=== PATIENT | male | born 1960 | race Caucasian/White ===

== ENCOUNTER 2020-09-01 08:47 | Outpatient (REF) | payer BC, SELFPAY ==
--- NOTE | ~2020-09-01 | US_ITS ---
EXAMINATION: US ABDOMEN COMPLETE CLINICAL INFORMATION: Right upper quadrant pain. COMPARISON: CT abdomen and pelvis 04/23/2012. Ultrasound abdomen 01/04/2011. TECHNIQUE: Real-time imaging of the abdominal viscera. FINDINGS: PANCREAS: Normal. ABDOMINAL AORTA: The abdominal aorta is of normal caliber with mild echogenic atherosclerotic plaque. INFERIOR VENA CAVA: Visualized portions are normal. LIVER: The liver is normal in size. The liver is normal caliber with increased echogenicity. No focal hepatic lesion. There is no intrahepatic biliary duct dilatation seen. GALLBLADDER: Surgically absent. COMMON BILE DUCT: Normal in caliber measuring 0.3 cm in diameter. RIGHT KIDNEY: Normal. No hydronephrosis. No renal calculi or focal parenchymal lesions. The kidney measures 12.8 cm in maximum dimension. LEFT KIDNEY: Normal. No hydronephrosis. No renal calculi or focal parenchymal lesions. The kidney measures 14.1 cm in maximum dimension. SPLEEN: Normal. The spleen measures 9.9 cm in maximum dimension. There is a small accessory splenule measuring 1.1 x 0.9 x 1.4 cm. FREE FLUID: None. US/US abdomen complete IMPRESSION: 1. Hepatic steatosis without focal lesion. 2. There is a small accessory splenule. 3. The rest of the abdominal ultrasound is unremarkable.
== END 2020-09-01 08:48 | disposition home or self-care (01) ==
LOC: HO.US 08:47
PROVIDERS: Visit Provider Internal Medicine Gastroenterology
DX: R10.11 Right upper quadrant pain (principal)
CPT/HCPCS: 76700

== ENCOUNTER 2020-09-01 10:15 | Outpatient (REF) | payer BC, SELFPAY ==
[2020-09-01 13:44] LABS: Hematocrit 47.6 % (42-52); Hemoglobin 15.6 g/dl (14.0-18.0); Mean Corpuscular HGB Conc 32.8 g/dl (31.0-36.0); Mean Corpuscular Hemoglobin 30.6 pg (27.0-33.0); Mean Corpuscular Volume 93.5 fL (80-98); Mean Platelet Volume 10.3 fL (9.4-12.4); Platelet Count 204 X10*3/uL (160-400); Red Blood Count 5.09 X10*6/uL (4.60-5.80); Red Cell Distribution Width 12.7 % (11.0-16.0)
[2020-09-01 14:19] LABS: Alanine Aminotransferase 45 U/L (0-40); Albumin Level 4.3 g/dL (3.5-5.0); Alkaline Phosphatase 51 U/L (39-117); Aspartate Amino Transferase 28 U/L (5-37); Bilirubin Direct 0.2 mg/dL (0.0-0.5); Bilirubin Total 0.6 mg/dL (0.0-1.0); Lipase 55 U/L (8-78)
== END 2020-09-01 10:16 | disposition home or self-care (01) ==
LOC: HO.10HDL 10:15
PROVIDERS: Visit Provider Internal Medicine Gastroenterology
DX: R10.11 Right upper quadrant pain (principal)
CPT/HCPCS: 36415; 80076; 83690; 85027

== ENCOUNTER 2021-01-18 10:16 | Outpatient (REF) | payer BC, SELFPAY ==
--- NOTE | ~2021-01-18 | XR_ITS ---
EXAMINATION: XR CERVICAL SPINE CLINICAL INFORMATION: Neck pain. COMPARISON: None TECHNIQUE: Three views of the cervical spine were obtained. FINDINGS: No abnormal prevertebral soft tissue swelling is seen. No acute cervical spine fracture is evident. There is moderate narrowing of the C5-C6 disc space with marginal spurring. There appears to be significant right C3-C4 neuroforaminal narrowing related to spurring of joints of Luschka. There is mild anterior neuroforaminal encroachment at the C5-C6 levels with bilateral spurring of the joints of L[place]chka. XR/XR cervical spine 4V IMPRESSION: No acute cervical spine fracture. Cervical spondylosis at the C3-C4 and C5-C6 levels.
== END 2021-01-18 10:17 | disposition home or self-care (01) ==
LOC: HO.XRAY 10:16
PROVIDERS: PCP Internal Medicine; Visit Provider Psychiatry & Neurology Neurology
DX: M54.2 Cervicalgia (principal); M47.812 Spondylosis without myelopathy or radiculopathy, cervical region
CPT/HCPCS: 72050

== ENCOUNTER 2021-03-09 | Outpatient (REF) | payer BC, SELFPAY | END 2021-03-09 00:01 | disposition home or self-care (01) | LOC: HO.LNP | PROVIDERS: Visit Provider Physician Assistant | DX: Z20.822 Contact with and (suspected) exposure to COVID-19 (principal); J34.89 Other specified disorders of nose and nasal sinuses | CPT/HCPCS: U0003; U0005 ==

== ENCOUNTER 2021-03-10 11:10 | Outpatient (REF) | payer BC, SELFPAY | END 2021-03-10 11:11 | disposition home or self-care (01) | LOC: HO.LNP 11:10 | PROVIDERS: Visit Provider Physician Assistant | DX: Z13.89 Encounter for screening for other disorder (principal) ==

== ENCOUNTER 2021-08-05 12:52 | Outpatient (REF) | payer BC, SELFPAY ==
[2021-08-05 13:29] LABS: Appearance Urine CLEAR; Color Urine YELLOW; Glucose Urine UA NEG (NEG); Leukocyte Esterase Urine NEG (NEG); Nitrite Urine NEG (NEG); PH 6.5 (5.0-8.0); Specific Gravity - Urine 1.015 (1.005-1.025); Urine Blood NEG (NEG); Urine Ketones NEG (NEG); Urine Protein NEG (NEG-TRACE)
[2021-08-05 14:03] LABS: RBC Urine 0 /HPF (0); WBC Urine 0 /HPF (0-4)
== END 2021-08-05 12:53 | disposition home or self-care (01) ==
LOC: HO.LAB 12:52
PROVIDERS: PCP Internal Medicine; Visit Provider Internal Medicine
DX: R30.0 Dysuria (principal)
CPT/HCPCS: 81001

== ENCOUNTER 2022-01-28 07:45 | Outpatient (REF) | payer BC, SELFPAY ==
[2022-01-28 08:36] LABS: Alanine Aminotransferase 79 U/L (0-40); Aspartate Amino Transferase 50 U/L (5-37); Cholesterol 173 mg/dL; HDL Cholesterol 30 mg/dL; LDL Cholesterol Calculated 101 mg/dl; Triglycerides 212 mg/dL
== END 2022-01-28 07:46 | disposition home or self-care (01) ==
LOC: HO.LAB 07:45
PROVIDERS: PCP Internal Medicine; Referring Provider Internal Medicine; Visit Provider Internal Medicine Cardiovascular Disease
DX: I25.10 Atherosclerotic heart disease of native coronary artery without angina pectoris (principal); E78.5 Hyperlipidemia, unspecified; I10 Essential (primary) hypertension
CPT/HCPCS: 36415; 80061; 84450; 84460

== ENCOUNTER 2023-10-01 14:41 | Emergency (ER) | payer BC, SELFPAY ==
[2023-10-01] VITALS (8 sets, daily range): BP systolic 120–150; BP diastolic 83–100; PULSE 76–89; RESP 14–22; TEMP 36.3–36.6; O2SAT 98–99; BMI 27.2
--- NOTE | ~2023-10-01 | CT_ITS ---
EXAMINATION: CT ABDOMEN AND PELVIS WITH CONTRAST CLINICAL INFORMATION: Lower abdominal pain question colitis COMPARISON: Ultrasound abdomen complete to 1021 TECHNIQUE: Multidetector volumetric images were obtained from the superior aspect of the liver through the pubic symphysis following administration 85 mL of Omnipaque 350 intravenous contrast. Sagittal and coronal reformatted images were obtained on the technologist's workstation. Oral contrast: No This CT examination was performed using dose optimization techniques as appropriate, variously including the following: *Automated exposure control *Adjustment of mA and/or kV according to patient size (this includes techniques or standardized protocols for targeted exams where dose is matched to indication/reason for exam; i.e. extremities or head) *Use of iterative reconstruction technique DLP: 458 mGy-cm FINDINGS: LUNG BASES: The heart size is enlarged with mild coronary artery calcifications. Minimal atelectatic changes seen in lingula and lung bases. LIVER, GALLBLADDER, AND BILIARY TREE: The liver is normal in size, shape, and attenuation. No focal hepatic lesion or biliary ductal dilatation is present. The gallbladder has been surgically removed. PANCREAS: Unremarkable. SPLEEN: Unremarkable. ADRENAL GLANDS: Unremarkable. KIDNEYS AND URETERS: The kidneys are normal in size, shape, and attenuation. No hydronephrosis, hydroureter, or calculi seen. No perinephric stranding. BLADDER: Unremarkable. GASTROINTESTINAL TRACT: There is scattered stool, diverticuli and gas seen throughout the colon without any significant distention. And there is nonspecific mild mural thickening involving sigmoid colon and the rectum but no pericolic fat stranding. The small bowel loops are normal caliber. Appendix is normal caliber. There is no free air or free fluid seen. ABDOMINAL WALL: No significant hernia is appreciated. LYMPH NODES: Normal. VASCULAR: There is aneurysmal dilatation of distal abdominal aorta measuring 3.1 x 3.5 cm and approximately 6.7 cm in craniocaudad length. There is significant thrombus noted. PELVIC VISCERA: The prostate gland is mildly enlarged. No free fluid or free air seen. Prominent left inguinal canal containing soft tissue density noted. The inferior end of the inguinal canal is not included in the [id number]. OSSEOUS STRUCTURES: Mild degenerative disc changes L3-L4 and L2-L2 disc levels with ventral spondylosis and endplate sclerosis at the L3-L4 disc level. No aggressive lytic process seen.. CT/CT abdomen pelvis w IV con IMPRESSION: Mild mural thickening distal sigmoid colon and rectum but no pericolic fat stranding. Question inflammatory colitis. Mild constipation. Aneurysmal dilatation of distal abdominal aorta with circumferential thrombus. Cholecystectomy changes. Fleischner guidelines were followed.
--- NOTE | ~2023-10-01 | CT_ITS ---
EXAMINATION: CT ANGIOGRAM ABDOMEN AND PELVIS CLINICAL INFORMATION: Abdominal pain, abnormal distal aorta COMPARISON: CT of the abdomen and pelvis obtained earlier today 10/01/2023 TECHNIQUE: Multiple axial images were obtained through the abdomen and pelvis following the administration of 80 mL of Omnipaque 350 intravenous contrast. Images were reviewed on a dedicated 3-D workstation. This CT examination was performed using dose optimization techniques as appropriate, variously including the following: *Automated exposure control *Adjustment of mA and/or kV according to patient size (this includes techniques or standardized protocols for targeted exams where dose is matched to indication/reason for exam; i.e. extremities or head) *Use of iterative reconstruction technique DLP: 444 mGy-cm FINDINGS: 1. Distal thoracic aorta:The distal thoracic aorta is normal in caliber. No evidence of dissection or other acute aortic syndrome. 2. Mesenteric Arteries: The celiac axis, superior mesenteric artery and inferior mesenteric artery are patent and without stenosis. Incidentally there is a replaced left hepatic artery arising from the left gastric artery. 3. Renal Arteries: There are 2 right renal arteries and a single left renal arteryRenal arteries are patent and without stenosis or other vascular anomaly. 4. Infrarenal Abdominal Aorta:As noted in the prior report there is an aneurysm of the infrarenal abdominal aorta originating just beyond the origin of the inferior mesenteric artery with moderately extensive mural thrombus within the posterior aspect of the aneurysmal segment. The aneurysm itself measures up to 3.5 x 3.1 cm in maximal dimension at the level of the L3-L4 interspace and while there is some tapering remains aneurysmal to the level of the iliac bifurcation where it measures 2.6 x 2.8 cm. 5. Iliac arteries:Aneurysmal dilation of the left common iliac artery measures up to 1.9 cm proximally. There is aneurysmal dilation of the right common iliac to 1.6 cm. There is severe stenosis at the origin of the right internal iliac artery and moderate stenosis at the origin of the left internal iliac artery. External iliac arteries are normal in caliber. There is calcific disease of the bilateral common femoral arteries which does not result in hemodynamically significant stenosis. 6. Inferior Vena Cava: Normal unenhanced appearance of the inferior vena cava 7. Iliac venous system: Normal unenhanced appearance 8. Randy-mesenteric venous system: Normal unenhanced appearance of the portal and mesenteric veins. Abdominopelvic findings are unchanged from the prior CT. CT/CT angio abdomen pelvis IMPRESSION: Patent abdominopelvic arterial vasculature. Infrarenal abdominal aortic aneurysm measures up to 3.5 x 3.1 cm. There are bilateral common iliac artery aneurysms measuring 1.6 mm on the right and 1.9 cm on the left. No change in previously described abdominopelvic findings.
--- NOTE | 2023-10-01 15:05 | ECG_ITS ---
Test Reason : ABD PAIN Blood Pressure : / mmHG Vent. Rate : 078 BPM Atrial Rate : 078 BPM P-R Int : 180 ms QRS Dur : 086 ms QT Int : 416 ms P-R-T Axes : 041 085 107 degrees QTc Int : 474 ms Normal sinus rhythm Anteroseptal infarct , age undetermined Abnormal ECG When compared with ECG of 01-JUL-2004 21:02, Premature ectopic complexes are no longer Present Anteroseptal infarct is now Present Nonspecific T wave abnormality no longer evident in Inferior leads T wave inversion now evident in Lateral leads QT has lengthened Referred By: Delfin Sr Electronically Signed By:KATI MAHER MD
--- NOTE | 2023-10-01 15:08 | ED.GENADULT ---
HPI - General Adult General Chief complaint: Abdominal Pain Stated complaint: ABD PAIN,NAUSEA,VOMITING PER EMS Time Seen by Provider: 10/01/23 14:54 History of Present Illness HPI narrative: Patient is a 63-year-old male with a history of coronary disease. He had quadruple bypass surgery in May of 2023 at [facility]. Prior to that he had had coronary stents. He also has a history of small-cell lung cancer manage the [facility]. He is currently considered disease free from the point of view of his lung cancer. He also has a history of irritable bowel syndrome and he is on chlordiazepoxide which he has been on for a long time. The patient says that multiple times last week he had episodes of lower abdominal pain which were relieved by passage of stools. He was in contact with his financial solutions advisor last week because of the symptoms. Apparently Dr. Leo arranged for an outpatient CT scan of the abdomen tomorrow at [facility]. Today however the patient had another episode of the same pains which did not resolve on its own and so he came to the emergency room by ambulance. He indicates that he feels the pain in the lower abdomen in the midline. He has had no real nausea or vomiting. He has had no diarrhea. No fevers. Related Data Home Medications Medication Instructions Recorded Confirmed aspirin 81 mg tablet,delayed 81 mg PO DAILY 10/12/20 03/09/21 release (Adult Aspirin Regimen) atorvastatin 80 mg tablet 80 mg PO DAILY 10/12/20 03/09/21 chlordiazepoxide-clidinium 5 1 cap PO BID 10/12/20 03/09/21 mg-2.5 mg capsule fenofibrate 160 mg tablet 160 mg PO DAILY 10/12/20 03/09/21 lisinopril 10 mg tablet 10 mg PO DAILY 10/12/20 03/09/21 metoprolol succinate 100 mg 100 mg PO DAILY 10/12/20 03/09/21 tablet,extended release 24 hr Previous Rx's Medication Instructions Recorded dicyclomine 10 mg capsule 10 mg PO TID PRN abdominal pain 10/01/23 #30 caps Allergies Allergy/AdvReac Type Severity Reaction Status Date / Time omeprazole [From Prilosec] Allergy Intermediate TACHYCARDIA Verified 07/26/21 09:29 NARCOTIC-? Allergy Unknown UNKNOWN Uncoded 07/26/21 09:29 prilosec Allergy Unknown tachycardia Uncoded 07/26/21 09:29 propulsid Allergy Unknown tachycardia Uncoded 07/26/21 09:29 Review of Systems Review of Systems: Yes all other systems are reviewed and are negative [facility] Past Medical History Medical History (Updated 10/01/23 @ 22:11 by Delfin Sr MD) Spasmodic colon Tremor Hypercholesterolemia Essential (primary) hypertension Surgical History History of back surgery History of cholecystectomy History of hernia surgery History of left ventricular assist device (LVAD) Family History Family History (Updated 07/26/21 @ 09:34 by MACRINA Connors) Mother No problems noted. Father No problems noted. Social History Social History (Updated 07/26/21 @ 09:34 by MACRINA Connors) Housing: House Alcohol intake: current Alcohol intake frequency: a few times a month Patient Tobacco Use Status: Current everyday Tobacco user Tobacco use type: Cigarette Cigarettes Per Day: 10 Smoked in Last 30 Days: No e-Cigarette/Vaping Use: Never Used Use of substances other than those prescribed or required for medical reasons: No Advance Directives: No Advance Directives Information Provided: No service: No Current occupational status: employed Cognitive needs: No Hearing needs: No Vision needs: Yes (reading glasses) Physical Exam ED Vital Signs: Vital Signs - 24 hr 10/01/23 15:03 10/01/23 16:00 10/01/23 17:52 Temperature 97.6 F 97.6 F Pulse Rate 76 78 82 Respiratory Rate 16 16 22 H Blood Pressure 148/92 H 131/84 138/92 H Pulse Oximetry 99 99 98 Oxygen Delivery Method Room Air Room Air Room Air 10/01/23 18:08 10/01/23 20:34 10/01/23 22:08 Temperature 97.8 F 97.4 F Pulse Rate 84 86 89 Respiratory Rate 16 16 14 Blood Pressure 126/86 126/83 120/87 Pulse Oximetry 98 98 98 Oxygen Delivery Method Room Air Room Air Room Air BMI result Body Mass Index 27.2 Const Other: The patient is awake and alert. He looks quite uncomfortable. HENMT Other: Face is symmetrical. Airway is clear. Mucous membranes moist Eyes Other: Pupils are round and equal, conjunctivae are clear Neck Other: No JVD Resp Effort & Inspection: normal respiratory effort Auscultation: clear to auscultation bilaterally Cardio Rate: regular rate Rhythm: regular rhythm Heart sounds: S1 normal heart sound present and S2 normal heart sound present GI Other: The patient has mild tenderness with palpation of the lower abdomen but no definite rebound or guarding. The upper abdomen is not obviously tender. No masses or pulsatile masses Skin Other: Skin is pale and dry Neuro Other: The patient is awake, alert, oriented, appropriate, grossly neurologically intact. Extrem Other: No calf swelling or tenderness. No peripheral edema. Both feet are well-perfused. The left foot has an excellent dorsalis pedis pulse. The right foot has an excellent posterior tibialis pulse. Medications Administered Generic Name Dose Route Start Last Admin Trade Name Freq PRN Reason Stop Dose Admin Sodium Chloride 1,000 mls @ 999 mls/hr 10/01/23 22:00 10/01/23 22:05 Ns IV 10/01/23 23:00 999 mls/hr .Q1H1M NACHO Administration Discontinued Medications Generic Name Dose Route Start Last Admin Trade Name Freq PRN Reason Stop Dose Admin Dicyclomine HCl 10 mg 10/01/23 21:50 10/01/23 22:05 Dicyclomine Hcl 10 Mg Capsule PO 10/01/23 21:51 10 mg ONCE ONE Administration Hydromorphone HCl 1 mg 10/01/23 17:44 10/01/23 17:50 Hydromorphone Hcl 1 Mg/Ml Syringe IVPUSH 10/01/23 17:45 1 mg ONCE ONE Administration Protocol Sodium Chloride 1,000 mls @ 999 mls/hr 10/01/23 15:15 10/01/23 17:35 Ns IV 10/01/23 16:15 Infused .Q1H1M NACHO Infusion Promethazine HCl 12.5 mg/ 50.5 mls @ 202 mls/hr 10/01/23 15:06 10/01/23 15:59 Sodium Chloride IV 10/01/23 15:07 Infused ONCE ONE Infusion Iohexol 100 ml 10/01/23 17:02 10/01/23 17:02 Iohexol 350 Mg/Ml 100 Ml Infus..Btl IV 10/01/23 17:03 85 ml ONCE ONE Administration Iohexol 100 ml 10/01/23 20:16 10/01/23 20:16 Iohexol 350 Mg/Ml 100 Ml Infus..Btl IV 10/01/23 20:17 80 ml ONCE ONE Administration Morphine Sulfate 4 mg 10/01/23 15:06 10/01/23 15:23 Morphine Sulfate 4 Mg/Ml Cartridge IVPUSH 10/01/23 15:07 4 mg ONCE ONE Administration Protocol Medical Decision Making Medical Decision Making [facility] Narrative: The patient is a 63-year-old male with a history of small-cell lung cancer which is currently in remission. He also has a history of coronary disease and recently had quadruple bypass at [facility]. He had a long postoperative course at [facility] that he says included a lot of abdominal problems including an ileus. The patient says that he has a history of IBS for which he has been prescribed chlordiazepoxide for many years. He comes to the emergency room complaining of lower abdominal midline discomfort feel last week intermittently and seemed to be very associated with bowel movements. Today he developed discomfort that became quite severe and he felt unable to pass any stool and called an ambulance and came to the hospital. His abdominal exam seemed fairly benign. He did not seem to have a lot of tenderness. I performed a bedside ultrasound of his abdomen after initially meeting the patient and there was no obvious aortic dilation. Views were poor because of bowel gas however. My overall impression was that the patient's symptoms seemed to be more gastrointestinal in vascular and so with the patient underwent a CT of the abdomen and pelvis with IV contrast with standard timing. The patient's labs were quite unremarkable with a white count of 9000 and an unremarkable differential. CRP was normal. Other labs were unremarkable. The patient was given IV morphine and later IV hydromorphone for pain The patient's CT was read as showing findings possibly consistent with mild colitis. Additionally there were findings of distal aortic dilation with thrombus. The radiologist felt that the aortic findings were likely chronic. I discussed the case with Dr. Jones of Gastroenterology who was concerned that the patient having pain out of proportion to his physical exam felt that the findings of possible colitis on CT were not very impressive. He was concerned about the vascular findings. Ultimately I felt that we needed to get a CT angiogram of the abdomen and pelvis to investigate for possible vascular pathology further. The aortic dilation is an infrarenal abdominal aneurysm measuring 3.5 x 3.1 cm in maximal dimension. At around the time that the CT angiogram results were obtained I also was able to review a CT from [facility] dated 06/16/[address]23. [address] CT scan describes a ?saccular infrarenal abdominal aortic aneurysm measuring 31 x 36 mm. It would seem therefore the infrarenal abdominal aneurysm is stable. The patient's CT angiogram had additional findings in the iliac arteries as well including stenoses and aneurysmal dilations. After the 2nd CT scan the patient apparently had an explosive bowel movement after which he felt considerably better. Ultimately I was quite convinced that the patient's symptoms seemed to be gastrointestinal rather than vascular. It seems likely that the patient's symptoms may be related to a long history of irritable bowel syndrome. Ultimately I felt the patient, who felt much better after an explosive bowel movement, did not require hospitalization. He will be prescribed dicyclomine and should follow up with Dr. Leo his financial solutions advisor. He also should follow up with a vascular surgeon as an outpatient. Lab Data 10/01/23 15:18 10/01/23 15:18 Labs: Lab Results 10/01/23 10/01/23 10/01/23 Range/Units 15:18 15:22 20:38 WBC 9.0 (4.8-10.8) X10*3/uL RBC 5.69 (4.60-5.80) X10*6/uL Hgb 14.7 (14.0-18.0) g/dl Hct 44.9 (42.0-52.0) % MCV 78.9 L (80.0-98.0) fL MCH 25.8 L (27.0-33.0) pg MCHC 32.7 (31.0-36.0) g/dl RDW 16.7 H (11.0-16.0) % Plt Count 266 (160-400) X10*3/uL MPV 9.1 L (9.4-12.4) fL Immature Gran % (Auto) 0.3 (0.0-0.4) % Neut % (Auto) 78.4 H (45-73) % Lymph % (Auto) 12.9 L (20-40) % [place] % (Auto) 6.9 (2-11) % Eos % (Auto) 0.9 (0-4) % Baso % (Auto) 0.6 (0-2) % Lymph # (Auto) 1.2 (1.2-4.9) X10*3/uL [place] # (Auto) 0.6 (0.1-1.2) X10*3/uL Eos # (Auto) 0.1 (0.0-0.4) X10*3/uL Baso # (Auto) 0.1 (0.0-0.2) X10*3/uL Abs Immat Gran (auto) 0.03 (0.00-0.03) X10*3/uL Absolute Neuts (auto) 7.1 (2.0-8.3) x10*3/uL Absolute Nucleated RBC 0.000 (0.0-0.012) X10*3/uL Nucleated RBC % (auto) 0.0 (0.0-0.2) /100WBC VBG pH 7.40 (7.32-7.43) VBG pCO2 38 mmHg VBG pO2 37 mmHg VBG HCO3 24 (22-26) mmol/L VBG O2 Saturation 55.0 % VBG Base Excess -0.3 mmol/L Sodium 139 (135-145) mmol/L Potassium 3.8 (3.3-5.1) mmol/L Chloride 104 (96-108) mmol/L Carbon Dioxide 24 (22-29) mmol/L Anion Gap 15 (12-20) BUN 18 H (9-16) mg/dL Creatinine 1.47 H (0.5-1.4) mg/dL Estim Creat Clear Calc 47.4 Estimated GFR 48 Random Glucose 98 (60-115) mg/dL Calcium 10.3 H (8.4-10.2) mg/dL Magnesium 1.9 (1.6-2.6) mg/dL Total Bilirubin 0.5 (0.0-1.0) mg/dL Direct Bilirubin 0.3 (0.0-0.5) mg/dL AST 35 (5-37) U/L ALT 35 (0-40) U/L Alkaline Phosphatase 73 (39-117) U/L Troponin I High Sens 4.7 (<3.5-35.0) ng/L C-Reactive Protein 0.32 (< or = 0.50) mg/dL Total Protein 7.7 (6.5-8.0) g/dL Albumin 4.3 (3.5-5.0) g/dL Lipase 32 (8-78) U/L Urine Color Yellow Urine Appearance Clear Urine pH 5.0 (5.0-9.0) Ur Specific [place] >= 1.030 H (1.005-1.025) Urine Protein Negative (Neg-Trace) mg/dL Urine Glucose (UA) Negative (Negative) mg/dL Urine Ketones Negative (Negative) mg/dL Urine Blood Negative (Negative) Urine Nitrite Negative (Negative) Ur Leukocyte Esterase Negative (Negative) Discharge Plan Discharge Clinical Impression: Abdominal pain, Abdominal spasms, Arterial vascular disease Patient Disposition: Home, Self-Care Additional Instructions: Your testing today is on the whole quite reassuring from the point of view of any acutely dangerous process. I think that symptoms that you have been experiencing are most likely a manifestation of irritable bowel syndrome. I have sent a medication called dicyclomine to your pharmacy which you may use on an as-needed basis for abdominal crampiness. Additionally you may want to try taking MiraLax for a few days to see if it helps loosen stools and ease passage of stool. Please contact your financial solutions advisor in the morning for a prompt follow-up appointment and additional advice. In addition you should also see a vascular surgeon. Your CT scans showed that you have findings in your major blood vessels that show early vascular disease that will need ongoing follow-up. I have provided the name and contact information for Dr. Head, the [place] vascular surgeon. Also make an appointment with your new primary care doctor. If you feel significantly worse at any time return to the emergency room. Prescriptions: New dicyclomine 10 mg capsule 10 mg PO TID PRN (Reason: abdominal pain) Qty: 30 0RF No Action fenofibrate 160 mg tablet 160 mg PO DAILY lisinopril 10 mg tablet 10 mg PO DAILY atorvastatin 80 mg tablet 80 mg PO DAILY chlordiazepoxide-clidinium 5-2.5 mg capsule 1 cap PO BID metoprolol succinate 100 mg tablet extended release 24 hr 100 mg PO DAILY aspirin [Adult Aspirin Regimen] 81 mg tablet,delayed release (DR/EC) 81 mg PO DAILY Referrals: Fernando Leo MD [Physician] - (Abdominal spasms, probable irritable bowel syndrome) Martinez Quintana MD [Physician] - (Abdominal cramping, incidental finding of intra-abdominal vascular disease) Antony Head MD [Physician] - (incidental findings of diffuse aortic and iliac disease) Interventions: ED Discharge Assessment Last Done: 10/01/23 22:27
[2023-10-01] MEDS: 0.9 % Sodium Chloride 1,000 ML 999 ML IV ×2 (15:22→22:05)
[2023-10-01 15:23] LABS: MANUAL DIFF FLAG NO
[2023-10-01] MEDS: Morphine Sulfate 4 MG/ML CARTRIDGE IVPUSH (15:23)
[2023-10-01 15:25] LABS: Basophils Absolute Auto 0.1 X10*3/uL (0.0-0.2); Basophils Percent Auto 0.6 % (0-2); Eosinophils Absolute Auto 0.1 X10*3/uL (0.0-0.4); Eosinophils Percent Auto 0.9 % (0-4); Hematocrit 44.9 % (42.0-52.0); Hemoglobin 14.7 g/dl (14.0-18.0); Imm Gran Abs Auto 0.03 X10*3/uL (0.00-0.03); Imm Gran Pct Auto 0.3 % (0.0-0.4); Lymphocytes Absolute Auto 1.2 X10*3/uL (1.2-4.9); Lymphocytes Percent Auto 12.9 % (20-40); Mean Corpuscular HGB Conc 32.7 g/dl (31.0-36.0); Mean Corpuscular Hemoglobin 25.8 pg (27.0-33.0); Mean Corpuscular Volume 78.9 fL (80.0-98.0); Mean Platelet Volume 9.1 fL (9.4-12.4); Monocytes Absolute Auto 0.6 X10*3/uL (0.1-1.2); Monocytes Percent Auto 6.9 % (2-11); Neutrophils Absolute Auto 7.1 x10*3/uL (2.0-8.3); Neutrophils Percent Auto 78.4 % (45-73); Platelet Count 266 X10*3/uL (160-400); Red Blood Count 5.69 X10*6/uL (4.60-5.80); Red Cell Distribution Width 16.7 % (11.0-16.0)
[2023-10-01 15:28] LABS: Venous Blood Gas Refer to POC result
[2023-10-01 15:28] LABS: VBG Base Excess -0.3 mmol/L; VBG HCO3 24 mmol/L (22-26); VBG pCO2 38 mmHg; VBG pO2 37 mmHg
--- NOTE | 2023-10-01 15:28 | PC.NURSE ---
Patient with PMH small cell lung CA, chemo 1 year ago, admitted with 10/10 abd pain since sunday, waxing and waning but constant since this AM. Denies N/V, last BM this AM. Arianna varela NT.
[2023-10-01 15:40] LABS: Alanine Aminotransferase 35 U/L (0-40); Albumin Level 4.3 g/dL (3.5-5.0); Alkaline Phosphatase 73 U/L (39-117); Anion Gap 15 (12-20); Aspartate Amino Transferase 35 U/L (5-37); Bilirubin Direct 0.3 mg/dL (0.0-0.5); Bilirubin Total 0.5 mg/dL (0.0-1.0); Blood Urea Nitrogen 18 mg/dL (9-16); C Reactive Protein 0.32 mg/dL (< or = 0.50); Calcium 10.3 mg/dL (8.4-10.2); Carbon Dioxide 24 mmol/L (22-29); Chloride 104 mmol/L (96-108); Creatinine Clr Calc Pharmacy 47.4; Estimated Glomerular Filt Rate 48; Glucose Random 98 mg/dL (60-115); Lipase 32 U/L (8-78); Magnesium 1.9 mg/dL (1.6-2.6); Potassium 3.8 mmol/L (3.3-5.1); Sodium 139 mmol/L (135-145); Total Protein 7.7 g/dL (6.5-8.0)
[2023-10-01 15:47] LABS: Troponin-I High Sensitivity 4.7 ng/L (<3.5-35.0)
[2023-10-01] MEDS: iohexoL 350 MG/ML 100 ML INFUS..BTL IV ×2 (17:02→20:16)
[2023-10-01] MEDS: HYDROmorphone HCl 1 MG/ML SYRINGE IVPUSH (17:50)
--- NOTE | 2023-10-01 20:12 | PC.NURSE ---
Patient assisted 1A to commode, currently transported to CT.
[2023-10-01 20:44] LABS: Appearance Urine Clear; Color Urine Yellow; Glucose Urine UA Negative (Negative); Leukocyte Esterase Urine Negative (Negative); Nitrite Urine Negative (Negative); Specific Gravity - Urine >= 1.030 (1.005-1.025); Urine Blood Negative (Negative); Urine Ketones Negative (Negative); Urine Protein Negative (Neg-Trace)
[2023-10-01] MEDS: Dicyclomine HCl 10 MG CAPSULE PO (22:05)
== END 2023-10-01 23:18 | disposition home or self-care (01) ==
PROVIDERS: Emergency Provider Emergency Medicine
DX: R10.9 Unspecified abdominal pain (principal); R25.2 Cramp and spasm; I77.9 Disorder of arteries and arterioles, unspecified; K58.9 Irritable bowel syndrome, unspecified; I71.43 Infrarenal abdominal aortic aneurysm, without rupture; Z85.118 Personal history of other malignant neoplasm of bronchus and lung; Z95.1 Presence of aortocoronary bypass graft; Z79.899 Other long term (current) drug therapy
CPT/HCPCS: 36415; 74174; 74177; 80048; 80076; 81003; 82803; 83690; 83735; 84484; 85025; 86140; 93005; 96361; 96374; 96375; 99285; J1170; J2270; J2550; Q9967

== ENCOUNTER → 2023-10-01 15:05 | Outpatient (BNV) | payer BC, SELFPAY | PROVIDERS: Emergency Provider Emergency Medicine; Visit Provider Internal Medicine Cardiovascular Disease | DX: R10.9 Unspecified abdominal pain (principal) | CPT/HCPCS: 93010 ==

== ENCOUNTER 2023-10-24 14:03 | Outpatient (AMB) | payer BC, SELFPAY ==
--- NOTE | 2023-10-24 14:05 | HO.NEPHOV_ITS ---
HPI HPI Comments History of Present Illness Details I had the privilege of seeing Edwin in follow-up of his chronic kidney disease and hypomagnesemia. He has coronary artery disease and had undergone CABG. As a part of workup for CABG he had a chest x-ray which showed an abnormal lesion which on further workup showed it as lung cancer for which he received chemotherapy(cisplatin as well as etoposide) and radiation. He continues to have hypomagnesemia and receives intravenous repletion. He feels much improved after his heart surgery. He has lost some weight and is quite active. He continues to get cardiac rehab. He denies chest pain, shortness of breath, paroxysmal nocturnal dyspnea, orthopnea, pedal edema, urinary or orthostatic symptoms. [facility] Medical History (Updated 10/24/23 @ 14:41 by Fredo Brandon MD) Spasmodic colon Tremor Hypercholesterolemia Essential (primary) hypertension Surgical History (Updated 10/24/23 @ 14:14 by Jenny Mueller MA) S/P quadruple vessel bypass History of left ventricular assist device (LVAD) History of hernia surgery History of cholecystectomy History of back surgery Family History Mother No problems noted. Father No problems noted. Social History Housing: House Alcohol intake: current Alcohol intake frequency: a few times a month Patient Tobacco Use Status: Current everyday Tobacco user Tobacco use type: Cigarette Cigarettes Per Day: 10 e-Cigarette/Vaping Use: Never Used service: No Current occupational status: employed Cognitive needs: No Hearing needs: No Vision needs: Yes (reading glasses) Vital Signs 10/24/23 14:08 Height 5 ft 7 in Weight 181 lb BMI 28.3 BP 120/82 Blood Pressure Location Rt brachial Position Sitting Pulse 77 Pulse Source Pulse Oximeter Pulse Oximetry (%) 99 Oxygen Delivery Method Room Air Physical Exam Vital Signs: Last Vital Signs Pulse 77 10/24/23 14:08 BP 120/82 10/24/23 14:08 Pulse Ox 99 10/24/23 14:08 Oxygen Delivery Method Room Air 10/24/23 14:08 BMI result Body Mass Index 28.3 Const General: comfortable and no acute distress Orientation/consciousness: patient oriented x3 HEENT Head: Yes normocephalic Mouth: Normal oral and palatal mucosa present Eyes EOM: EOMs intact bilaterally Neck Neck: Yes supple Resp Auscultation: clear to auscultation bilaterally Cardio Jugular venous distension: no JVD Rate: regular rate GI Palpation (GI): Soft to palpation Auscultation: normal bowel sounds General: Yes no CVA tenderness Back/Spine/Pelvis Back: no CVA tenderness Skin General skin exam: no rashes or lesions noted Neuro General: patient oriented x3 and moves all extremities Extrem General: Yes no pedal edema Assessment & Plan Assessment & Plan (1) CKD (chronic kidney disease) stage 3, GFR 30-59 ml/min: Code(s): N18.30 - Chronic kidney disease, stage 3 unspecified Qualifiers: Chronic kidney disease stage 3 subtype: stage 3a (GFR 45-59) Qualified Code(s): N18.31 - Chronic kidney disease, stage 3a (2) Essential (primary) hypertension: Code(s): I10 - Essential (primary) hypertension (3) Hypomagnesemia: Code(s): E83.42 - Hypomagnesemia Plan His renal functions are stable. His blood pressure is at goal. He continues to get intravenous magnesium replacement. I asked him to take increased oral dose of magnesium. I will consider initiating him on amiloride in the future. He maintains good hydration. He does not have any orthostatic symptoms. He should avoid nonsteroidal anti-inflammatories. I did not make any other medication changes today. Follow-up blood work ordered and follow-up appointment given. Answered all questions. Orders: Orders Blood Urea Nitrogen 10/24/23 E83.42 - Hypomagnesemia, I10 - Essential (primary) hypertension, N18.30 - Chronic kidney disease, stage 3 unspecified Electrolytes 10/24/23 E83.42 - Hypomagnesemia, I10 - Essential (primary) hypertension, N18.30 - Chronic kidney disease, stage 3 unspecified Creatinine 10/24/23 E83.42 - Hypomagnesemia, I10 - Essential (primary) hypertension, N18.30 - Chronic kidney disease, stage 3 unspecified Coding Level of Care Code Est Pt Level 4 (11186) Diagnoses Stage 3a chronic kidney disease N18.31 Chronic kidney disease stage 3 subtype: stage 3a (GFR 45-59) Essential (primary) hypertension I10 Hypomagnesemia E83.42 Results Reviewed Nephrology Results: Hgb 14.7 g/dl (14.0-18.0) 10/01/23 WBC 9.0 X10*3/uL (4.8-10.8) 10/01/23 Plt Count 266 X10*3/uL (160-400) 10/01/23 Sodium 139 mmol/L (135-145) 10/01/23 Potassium 3.8 mmol/L (3.3-5.1) 10/01/23 Chloride 104 mmol/L (96-108) 10/01/23 Carbon Dioxide 24 mmol/L (22-29) 10/01/23 BUN 18 mg/dL (9-16) H 10/01/23 Creatinine 1.47 mg/dL (0.5-1.4) H 10/01/23 Calcium 10.3 mg/dL (8.4-10.2) H 10/01/23 Urine Protein Negative mg/dL (Neg-Trace) 10/01/23
[2023-10-24 14:08] VITALS: BP 120/82; PULSE 77; O2SAT 99; BMI 28.3
== END 2023-10-24 14:48 | disposition home or self-care (01) ==
PROVIDERS: PCP Internal Medicine; Visit Provider Internal Medicine Nephrology
DX: N18.31 Chronic kidney disease, stage 3a (principal); I10 Essential (primary) hypertension; E83.42 Hypomagnesemia
CPT/HCPCS: 99214

== ENCOUNTER → 2023-10-24 14:03 | Outpatient (BNVA) | payer BC, SELFPAY | PROVIDERS: PCP Internal Medicine; Visit Provider Internal Medicine Nephrology ==

== ENCOUNTER 2023-10-31 15:29 | Outpatient (AMB) | payer BC, SELFPAY ==
--- NOTE | 2023-10-31 15:41 | MHC.PC.OV ---
Vital Signs 10/31/23 15:42 Height 5 ft 7 in Weight 180 lb BMI 28.2 BP 122/72 Blood Pressure Location Lt brachial Position Sitting Pulse 74 Pulse Source Pulse Oximeter Pulse Oximetry (%) 98 Oxygen Delivery Method Room Air Intake Visit Reasons: CKD, HTN Intake Note: Patient is here to follow up on CKD, HTN. 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 Allergy (Unknown, Uncoded 10/31/23 15:42) UNKNOWN prilosec Allergy (Unknown, Uncoded 10/31/23 15:42) tachycardia propulsid Allergy (Unknown, Uncoded 10/31/23 15:42) tachycardia Tobacco use date assessed: 10/31/23 Fall risk assessment: No Falls in past year Last assessed Fall Risk: 10/31/23 Dental Screening Dental Screen Date: 10/31/23 Did you have a dental visit in the last 12 months?: Yes Did you have a dental problem in the last 6 months where you did not have access to dental care?: No Was dental information given to patient?: Patient has dentist HPI CKD, HTN HPI Details 63-year-old male presents to the office to discuss his chronic medical conditions. In April of last year, patient had a routine chest x-ray which revealed his non-small cell cancer. He received 4 rounds of chemotherapy and radiation. This was complicated with low magnesium and required multiple hospitalizations at [facility]. He also underwent bypass surgery for his coronary artery disease. Surgery also was complicated with low magnesium and hemoglobin. Patient now has stage 3 kidney disease and sees a certified pest control technician. He continues to get cardiac rehab. He denies chest pain, shortness of breath, paroxysmal nocturnal dyspnea, orthopnea, pedal edema, urinary or orthostatic symptoms. [facility] Medical History (Updated 11/04/23 @ 08:30 by Lazaro Campbell MD) Coronary artery disease Small cell lung cancer Spasmodic colon Tremor Hypercholesterolemia Essential (primary) hypertension Surgical History S/P quadruple vessel bypass History of left ventricular assist device (LVAD) History of hernia surgery History of cholecystectomy History of back surgery Family History Mother No problems noted. Father No problems noted. Social History Housing: House Alcohol intake: current Alcohol intake frequency: holidays/special occasions only Patient Tobacco Use Status: Former Tobacco user Tobacco use type: Cigarette Cigarettes Per Day: 10 e-Cigarette/Vaping Use: Never Used Second Hand Smoke Exposure: Yes service: No Current occupational status: employed Cognitive needs: No Hearing needs: No Vision needs: Yes (reading glasses) Questionnaire PHQ-9 Over the last 2 weeks, how often have you been bothered by any of the following problems? 1. Little interest or pleasure in doing things: not at all 2. Feeling down, depressed, or hopeless: not at all 3. Trouble falling or staying asleep, or sleeping too much: not at all 4. Feeling tired or having little energy: not at all 5. Poor appetite or overeating: not at all 6. Feeling bad about yourself - or that you are a failure or have let yourself or your family down: not at all 7. Trouble concentrating on things, such as reading the newspaper or watching television: not at all 8. Moving or speaking so slowly that other people could have noticed. Or the opposite - being so fidgety or restless that you have been moving around a lot more than usual: not at all 9. Thoughts that you would be better off or of hurting yourself in some way: not at all Total score: 0 Depression Screening Interpretation: Negative Depression Screening Done: Yes Source: Developed by Drs. Derrick Mantilla, Macrina Avilez, Jaydon Douglass and colleagues, with an educational cali from [employer]. Thrive Questionnaire Date Thrive assessed: 10/31/23 I am a: Patient What is your living situation today?: I have a steady place to live Within the past 12 months, did the food you bought not last and you didn't have the money to get more?: Never true Within the past 12 months, did you worry whether your food would run out before you got money to buy more?: Never true Do you have trouble paying for medicines?: No Do you have trouble getting transportation to medical appointments?: No Do you have trouble paying your heating and electricity bill?: No Do you have trouble taking care of your child, family member or friend?: No Do you have trouble with day-to-day activities such as bathing, preparing meals, shopping, managing finances, etc.?: No Are you currently unemployed and looking for a job?: No Are you interested in more education?: No Currently or been in a relationship where the following occur: no concerns reported THRIVE Score: 0 AUDIT C Alcohol Use Questionnaire (AUDIT-C) 1. How often do you have a drink containing alcohol?: Monthly or less 2. How many drinks containing alcohol do you have on a typical day when you are drinking?: 1 or 2 Total Score: 1 LAXMI-7 AMB Questionnaire LAXMI-7 Date LAXMI - 7 assessed: 10/31/23 Feeling nervous, anxious, or on edge: 0 = Not at all Not being able to stop or control worryin = Not at all Worrying too much about different things: 0 = Not at all Trouble relaxin = Not at all Being so restless that it is hard to sit still: 0 = Not at all Becoming easily annoyed or irritable: 0 = Not at all Feeling afraid as if something awful might happen: 0 = Not at all Total LAXMI-7 score (0-4 normal; 5-9 mild; 10-14 moderate; 15-21 severe): 0 Source: Developed by Drs. Derrick Mantilla, Macrina Avilez, Jaydon Douglass and colleagues, with an educational cali from [employer]. Physical exam (Primary Care) Vital Signs: Last Vital Signs Pulse 74 10/31/23 15:42 BP 122/72 10/31/23 15:42 Pulse Ox 98 10/31/23 15:42 Oxygen Delivery Method Room Air 10/31/23 15:42 Care Plan Goal for BP management: Blood pressure is in range. Continue current medications BMI result Body Mass Index 28.2 Tobacco/Smoking Status: Tobacco use Status Tobacco use date assessed 10/31/23 10/31/23 15:51 Patient Tobacco Use Status Former Tobacco user 10/31/23 15:51 Tobacco use type Cigarette 10/31/23 15:51 e-Cigarette/Vaping Use Never Used 10/31/23 15:51 PHQ-9: PHQ-9 Score PHQ-9: Total score 0 10/31/23 15:51 Depression Screening Interpretation: Negative Thrive Assessment: Date of Thrive Assessment Date Thrive assessed 10/31/23 10/31/23 15:51 Currently or been in a relationship where the following occur: no concerns reported Advance Care Planning discussion: Exists, not on file Date of discussion: 10/31/23 Who was present: Pain Forms completed: Health Care Proxy Time spent: 1-15 minutes, not on file Actual minutes spent: 5 Const General: cooperative and healthy appearing Nutritional Appearance: well nourished Orientation/consciousness: patient oriented x3 Limitations: no limitations HENMT Head: Yes normal to inspection Eyes General: appearance normal, both eyes and all related structures Neck Neck: Yes normal visual inspection Chest Chest palpation & inspection: normal palpation of entire chest wall Resp Effort & Inspection: normal respiratory effort Neuro General: patient oriented x3 Assessment and Plan Assessment & Plan (1) Small cell lung cancer: Code(s): C34.90 - Malignant neoplasm of unspecified part of unspecified bronchus or lung Plan: Notes from oncologist at [facility] reviewed. Patient received chemoradiation. No further treatment is being planned at this time. Recent MRI was clear for any metastasis (2) CKD (chronic kidney disease) stage 3, GFR 30-59 ml/min: Code(s): N18.30 - Chronic kidney disease, stage 3 unspecified Qualifiers: Chronic kidney disease stage 3 subtype: stage 3a (GFR 45-59) Qualified Code(s): N18.31 - Chronic kidney disease, stage 3a Plan: Note from the certified pest control technician reviewed. Patient has stage 3 kidney disease (3) Hypomagnesemia: Code(s): E83.42 - Hypomagnesemia Plan: Condition is stable (4) Spasmodic colon: Code(s): K58.9 - Irritable bowel syndrome without diarrhea Qualifiers: Irritable bowel syndrome type: unspecified Qualified Code(s): K58.9 - Irritable bowel syndrome without diarrhea Plan: Condition is stable (5) Coronary artery disease: Code(s): I25.10 - Atherosclerotic heart disease of [place] coronary artery without angina pectoris Plan: Continue cardiac rehab. He is getting it done at [facility]. Coding Level of Care Code Est Pt Level 4 (85539) Diagnoses Small cell lung cancer C34.90 Stage 3a chronic kidney disease N18.31 Chronic kidney disease stage 3 subtype: stage 3a (GFR 45-59) Hypomagnesemia E83.42 Irritable bowel syndrome, unspecified type K58.9 Irritable bowel syndrome type: unspecified Coronary artery disease I25.10 Additional Codes Vital Signs *Quality* - Advance Care Planning discussion: Exists, not on file ([id number]) Vital Signs *Quality* - Time spent: 1-15 minutes, not on file ([id number])
[2023-10-31 15:42] VITALS: BP 122/72; PULSE 74; O2SAT 98; BMI 28.2
== END 2023-10-31 16:28 | disposition home or self-care (01) ==
LOC: HO.HMGH 15:29
PROVIDERS: PCP Internal Medicine; Visit Provider Internal Medicine
DX: C34.90 Malignant neoplasm of unspecified part of unspecified bronchus or lung (principal); N18.31 Chronic kidney disease, stage 3a; E83.42 Hypomagnesemia; K58.9 Irritable bowel syndrome, unspecified; I25.10 Atherosclerotic heart disease of native coronary artery without angina pectoris; Z00.00 Encounter for general adult medical examination without abnormal findings
CPT/HCPCS: 1123F; 1124F; 99214

== ENCOUNTER 2023-12-13 09:25 | Outpatient (AMB) | payer BC, SELFPAY ==
--- NOTE | 2023-12-13 09:36 | A.OFFVIS_ITS ---
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 Went to the ED for abdominal pain. Pt states he sees many specialist due to cancer hx, sees oncology, nephrology, pulmonology/thoracic, radiologist (cancer Tx), cardiology. Accompanied by: Self / Same As Patient Allergies omeprazole [From Prilosec] Allergy (Intermediate, Verified 12/13/23 09:43) TACHYCARDIA NARCOTIC-? 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 He has a history of coronary artery disease and prior to undergoing CABG she was worked up and found to have small cell lung cancer. Was subsequently treated at [facility]. It appeared to have reduced in size and he subsequently underwent CABG. Post CABG he had a prolonged hospital stay of nearly 22 days. During his workup he had undergone CT angiogram and it was noted that he had a aortic aneurysm. He now presents to us for follow-up. He is of note quit smoking about a year and a half ago. [facility] Medical History Coronary artery disease Small cell lung cancer Spasmodic colon Tremor Hypercholesterolemia Essential (primary) hypertension Surgical History S/P quadruple vessel bypass History of left ventricular assist device (LVAD) History of hernia surgery History of cholecystectomy History of back surgery Family History Mother No problems noted. Father No problems noted. Social History Housing: House Alcohol intake: current Alcohol intake frequency: holidays/special occasions only Patient Tobacco Use Status: Former Tobacco user Tobacco use type: Cigarette Cigarettes Per Day: 10 e-Cigarette/Vaping Use: Never Used Second Hand Smoke Exposure: Yes service: No Current occupational status: employed Cognitive needs: No Hearing needs: No Vision needs: Yes (reading glasses) Review of Systems Const All systems reviewed & are unremarkable except as noted in HPI and below Reports no additional complaints ENT Reports Normal hearing present Card Denies chest pain, Denies chest pain at rest, Denies chest pain with activity and Denies pedal edema Resp Denies cough GI Denies abdominal pain Musc Denies abnormal gait, Denies muscle cramps and Denies radiating pain into limb Skin/Breast Denies skin ulcer and Denies wounds Neuro Reports Normal hearing present and Denies abnormal gait Psych Reports no additional complaints Physical Exam Vital Signs: BMI result Body Mass Index 28.2 Const General: cooperative, healthy appearing and comfortable Orientation/consciousness: oriented to person, oriented to place and oriented to time HEENT Head: Yes normal to inspection Neck Neck: Yes normal visual inspection Carotids: no bruits Chest Chest palpation & inspection: normal inspection of the chest Resp Effort & Inspection: normal respiratory effort and able to speak in complete sentences Auscultation: clear to auscultation bilaterally, no crackles, no rales, no rhonchi and no wheezes Cardio Rate: regular rate Rhythm: regular rhythm Heart sounds: S1 normal heart sound present and S2 normal heart sound present Bruits: no carotid bruits Peripheral pulses: Peripheral pulses 2+ throughout GI Inspection: Yes normal to inspection Skin Wounds: no wounds Hair: normal Neuro General: oriented to person, oriented to place and oriented to time Cranial nerves: Yes CN's II-XII intact bilaterally and Yes Normal hearing present Cognition (Neuro): normal cognition Motor exam (neuro): 5/5 motor strength present throughout Extrem Other: venous exam: No significant superficial varicosities or spider telangiectasias, minimal edema General: No clubbing, No cyanosis and No edema Psych Appearance: grossly normal Mental Status: mental status grossly normal Speech and movement: Normal speech and movement present Results Reviewed Results Reviewed: CT angiogram dated 10/01/2023 demonstrates infrarenal aorta measuring 3.5 x 3.1 cm. Assessment & Plan Assessment & Plan (1) AAA (abdominal aortic aneurysm) without rupture: Code(s): I71.40 - Abdominal aortic aneurysm, without rupture, unspecified Category: Medical Qualifiers: Abdominal aorta location: infrarenal aorta Qualified Code(s): I71.43 - Infrarenal abdominal aortic aneurysm, without rupture Plan: In short patient has radiologic evidence of a AAA on CT scan of 3.5 cm. We have discussed the pathophysiology of aortic aneurysms and the risk of ruptures. We have discussed rupture risk based on size. In addition we have discussed conservative measures and risk factor modification for prevention of increase in size of the aneurysm. the patient is scheduled for surveillance follow-up in approximately 1 year. Thank you for allowing us to participate in the care of this patient Orders: Orders US abdominal aortic aneurysm 1 Year I71.43 - Infrarenal abdominal aortic aneurysm, without rupture Coding Level of Care Code New Pt Level 4 (04375) Diagnoses Infrarenal abdominal aortic aneurysm (AAA) without rupture I71.43 Abdominal aorta location: infrarenal aorta
[2023-12-13 09:37] VITALS: BMI 28.2
== END 2023-12-13 10:02 | disposition home or self-care (01) ==
PROVIDERS: Visit Provider Surgery Vascular Surgery
DX: I71.43 Infrarenal abdominal aortic aneurysm, without rupture (principal)
CPT/HCPCS: 99204

== ENCOUNTER → 2023-12-13 09:25 | Outpatient (BNVA) | payer BC, SELFPAY | PROVIDERS: Visit Provider Surgery Vascular Surgery ==

== ENCOUNTER 2024-03-28 06:25 | Day surgery (SDC) | payer BC, SELFPAY ==
[2024-03-28 06:52] VITALS: BP 140/91; PULSE 82; RESP 16; TEMP 36.5; O2SAT 99; BMI 29.6
[2024-03-28] MEDS: Lactated Ringers 1,000 ML 100 ML IVCONT (07:12)
--- NOTE | 2024-03-28 07:20 | HO.ANESPROP2 ---
Documented by User: Courtney Paul NP 03/27/24 13:05 HPI - Anesthesia Eval Consult details Narrative: 63yo M for Colonoscopy CAD s/p CABG x 4 05/2023. Follows [facility] Cardiology. OK to hold plavix, but must remain on asa periop Follows vascular for AAA (3.5 cm infrarenal). Last visit 11/2023 with 1 year f/u. Lung CA s/p chemo and rad CKD and hypomag r/t chemo/rad. Follows renal PMFSH Active Problems Active Problems: All Active Problems AAA (abdominal aortic aneurysm) without rupture (Acute) Hypomagnesemia (Acute) CKD (chronic kidney disease) stage 3, GFR 30-59 ml/min (Acute) Viral upper respiratory tract infection (Acute) Rhinorrhea (Acute) Coronary artery disease (Acute) Small cell lung cancer (Acute) Spasmodic colon (Acute) Tremor (Acute) Hypercholesterolemia (Acute) Essential (primary) hypertension (Acute) Past Medical History Medical History (Updated 03/26/24 @ 14:39 by Court Jacobo RN) AAA (abdominal aortic aneurysm) Coronary artery disease Small cell lung cancer Spasmodic colon Tremor Hypercholesterolemia Essential (primary) hypertension Family History Family History Mother No problems noted. Father No problems noted. Surgical History Surgical History History of esophagogastroduodenoscopy (EGD) H/O colonoscopy Hx of heart artery stent S/P quadruple vessel bypass History of hernia surgery History of cholecystectomy History of back surgery Social History Social History Housing: House Are you a primary customer care representative to a significant other at home: No Do you presently have visiting nurse or other home services: No Alcohol intake: current Alcohol intake frequency: holidays/special occasions only Patient Tobacco Use Status: Former Tobacco user Tobacco use type: Cigarette Cigarettes Per Day: 10 Years Smoked: 30 Smoked in Last 30 Days: No e-Cigarette/Vaping Use: Never Used Second Hand Smoke Exposure: Yes Use of substances other than those prescribed or required for medical reasons: No Have you been hit, kicked, punched, or otherwise hurt by someone within the past year? If so, by whom?: No Are you DNR?: No Advance Directives: No Advance Directives Information Provided: Yes Recently lost weight without trying: No How much weight loss: Not applicable Eating poorly because of decreased appetite: No Nutrition screen score: 0 Nutrition Risks: No Nutritional Risk Poor oral hygiene: Yes (full upper, lower partial) service: No Current occupational status: employed Cognitive needs: No Hearing needs: No Vision needs: Yes (reading glasses) Meds Allergies Allergy/AdvReac Type Severity Reaction Status Date / Time meperidine [From Demerol] Allergy Severe UNKNOWN Verified 03/28/24 06:48 woke up in ICU omeprazole [From Prilosec] Allergy Intermediate TACHYCARDIA Verified 03/28/24 06:48 Home Medications ?Medication ?Instructions ?Recorded ?Confirmed ?Last Taken ?Type aspirin 81 mg tablet,delayed 81 mg PO DAILY 10/12/20 03/28/24 03/27/24 History release (Adult Aspirin Regimen) atorvastatin 80 mg tablet 80 mg PO DAILY 10/12/20 03/28/24 Unknown History fenofibrate 160 mg tablet 160 mg PO DAILY 10/12/20 03/28/24 Unknown History clopidogrel 75 mg tablet 75 mg PO DAILY 10/24/23 03/28/24 03/20/24 History dicyclomine 10 mg capsule 10 mg PO BID PRN abdominal pain 10/24/23 03/28/24 Unknown History lansoprazole 15 mg capsule,delayed 15 mg PO BID 10/24/23 03/28/24 03/28/24 History release magnesium oxide 400 mg (241.3 mg 400 mg PO BID 10/24/23 03/28/24 Unknown History magnesium) tablet metoprolol tartrate 25 mg tablet 12.5 mg PO BID 10/24/23 03/28/24 03/28/24 History amlodipine 2.5 mg tablet 2.5 mg PO DAILY 12/13/23 03/28/24 03/28/24 History Exam Pertinent Lab Results Pertinent Lab Results: Laboratory Tests 10/01/23 15:18 WBC 9.0 Hgb 14.7 Hct 44.9 Plt Count 266 Sodium 139 Potassium 3.8 Chloride 104 Carbon Dioxide 24 BUN 18 H Creatinine 1.47 H Narrative Narrative: EKG 09/2023 Vent. Rate : 078 BPM Atrial Rate : 078 BPM P-R Int : 180 ms QRS Dur : 086 ms QT Int : 416 ms P-R-T Axes : 041 085 107 degrees QTc Int : 474 ms Normal sinus rhythm Anteroseptal infarct , age undetermined Abnormal ECG When compared with ECG of 01-JUL-2004 21:02, Premature ectopic complexes are no longer Present Anteroseptal infarct is now Present Nonspecific T wave abnormality no longer evident in Inferior leads T wave inversion now evident in Lateral leads QT has lengthened ECHO 02/2024 1. LV size nml 2. Mild conc LVH 3. LV sys function mildly impaired with EF 45-50% 4. Grade 1 DD with impaired relax filling pattern 5-8: akinetic anterior apex, apical septum, inferior apex, apex 9. LA size is nml 10. RV sys function low end of nml 11. Trace MR 12. Accurate pulmo pressures could not be obtained d/t absence of TR jet 13. Asc aorta is dilated up to 3.9cm 14. No real change c/w 06/2023 Assessment and Plan Assessment Anesthesia Assessment: Chart Reviewed Documented by User: Love Shannon DO 03/28/24 07:31 [facility] Past Medical History Medical History (Updated 03/26/24 @ 14:39 by Cuort Jacobo RN) AAA (abdominal aortic aneurysm) Coronary artery disease Small cell lung cancer Spasmodic colon Tremor Hypercholesterolemia Essential (primary) hypertension Family History Family History Mother No problems noted. Father No problems noted. Family history of problems with anesthesia: No Surgical History Surgical History History of esophagogastroduodenoscopy (EGD) H/O colonoscopy Hx of heart artery stent S/P quadruple vessel bypass History of hernia surgery History of cholecystectomy History of back surgery History of Problems with Anesthesia: No Social History Social History Housing: House Are you a primary customer care representative to a significant other at home: No Do you presently have visiting nurse or other home services: No Alcohol intake: current Alcohol intake frequency: holidays/special occasions only Patient Tobacco Use Status: Former Tobacco user Tobacco use type: Cigarette Cigarettes Per Day: 10 Years Smoked: 30 Smoked in Last 30 Days: No e-Cigarette/Vaping Use: Never Used Second Hand Smoke Exposure: Yes Use of substances other than those prescribed or required for medical reasons: No Have you been hit, kicked, punched, or otherwise hurt by someone within the past year? If so, by whom?: No Are you DNR?: No Advance Directives: No Advance Directives Information Provided: Yes Recently lost weight without trying: No How much weight loss: Not applicable Eating poorly because of decreased appetite: No Nutrition screen score: 0 Nutrition Risks: No Nutritional Risk Poor oral hygiene: Yes (full upper, lower partial) service: No Current occupational status: employed Cognitive needs: No Hearing needs: No Vision needs: Yes (reading glasses) Meds Allergies Allergy/AdvReac Type Severity Reaction Status Date / Time meperidine [From Demerol] Allergy Severe UNKNOWN Verified 03/28/24 06:48 woke up in ICU omeprazole [From Prilosec] Allergy Intermediate TACHYCARDIA Verified 03/28/24 06:48 Home Medications ?Medication ?Instructions ?Recorded ?Confirmed ?Last Taken ?Type aspirin 81 mg tablet,delayed 81 mg PO DAILY 10/12/20 03/28/24 03/27/24 History release (Adult Aspirin Regimen) atorvastatin 80 mg tablet 80 mg PO DAILY 10/12/20 03/28/24 Unknown History fenofibrate 160 mg tablet 160 mg PO DAILY 10/12/20 03/28/24 Unknown History clopidogrel 75 mg tablet 75 mg PO DAILY 10/24/23 03/28/24 03/20/24 History dicyclomine 10 mg capsule 10 mg PO BID PRN abdominal pain 10/24/23 03/28/24 Unknown History lansoprazole 15 mg capsule,delayed 15 mg PO BID 10/24/23 03/28/24 03/28/24 History release magnesium oxide 400 mg (241.3 mg 400 mg PO BID 10/24/23 03/28/24 Unknown History magnesium) tablet metoprolol tartrate 25 mg tablet 12.5 mg PO BID 10/24/23 03/28/24 03/28/24 History amlodipine 2.5 mg tablet 2.5 mg PO DAILY 12/13/23 03/28/24 03/28/24 History Exam Exam Date and Time: 03/28/24 0720 Height,Weight and Vital Signs: Height 5 ft 7 in Weight 85.638 kg Vital Signs Temperature 97.7 F 03/28/24 06:52 Pulse Rate 82 03/28/24 06:52 Respiratory Rate 16 03/28/24 06:52 Blood Pressure 140/91 H 03/28/24 06:52 Pulse Oximetry 99 03/28/24 06:52 Oxygen Delivery Method Room Air 03/28/24 06:52 Temperature 97.7 F 03/28/24 06:52 Pulse Rate 82 03/28/24 06:52 Respiratory Rate 16 03/28/24 06:52 Blood Pressure 140/91 H 03/28/24 06:52 Pulse Oximetry 99 03/28/24 06:52 Oxygen Delivery Method Room Air 03/28/24 06:52 Airway Mallampati Class: II TM Dist: >3cm Neck ROM: Limited Denture: Upper and Lower Heart: S1S2 Lungs: CTAB Assessment and Plan Assessment Anesthesia Assessment: Anesthesia Plan Discussed and Chart Reviewed Final Anesthetic Review Family History of Problems with Anesthesia: No History of Problems with Anesthesia: No NPO: Yes ASA Class: III Final Preanesthetic Review: No Changes in Pt Med Stat, Meds/Allgs Chart Reviewed, Consent Obtained/Reviewed and Anes Risks/Benef Reviewed Patient Risk: High Procedure Risk: Low Anesthetic Plan Anesthetic Plan: MAC: and Agree w/ Assess. and Plan Disposition: Standard PACU
--- NOTE | 2024-03-28 07:22 | PC.NURSE ---
Patient in preop. Complaining of mild right sided abdominal pain since this Sunday (3 days ago). Dr. Leo made aware.
--- NOTE | 2024-03-28 07:23 | PC.NURSE ---
Patient arrived to [facility] with lab work results taken yesterday, CMP and CBC with dif, and chest CT results. Results shared with anesthesia BRAYAN Collier, Dr. Shannon, and Dr. Leo. Okay to proceed.
--- NOTE | 2024-03-28 07:32 | MHC.SHP ---
Pre-Procedural Eval Section A - 24 Hr Update-Section A only Date of Service: 03/28/24 Section B - Complete if H&P > 30 days Chief Complaint: Encounter for screening for malignant neoplasm of Details of Present Illness: see H&P no changes Relevant Family History (Specify if Yes): No Relevant Social History: None Present Medications: see Short Stay Collaborative assessment Medical History: No relevant PMH History of Previous Operations: No relevant previous surgery Allergies: Allergies Allergy/AdvReac Type Severity Reaction Status Date / Time meperidine [From Demerol] Allergy Severe UNKNOWN Verified 03/28/24 06:48 woke up in ICU omeprazole [From Prilosec] Allergy Intermediate TACHYCARDIA Verified 03/28/24 06:48 Review of Systems Sugical H&P ROS: Negative: Constitution, Cardiovascular, Respiratory, Neurological, Psychiatric, Hem-Onc, Allergic/Immunologic, Gastrointestinal, Genitourinary, Musculoskeletal, Integumentary, Endocrine and Eyes/Ears/Nose/Throat Exam Surgical H&P Exam: Normal: HEENT, Normal: Heart, Normal: Lungs, Normal: Extremities, Normal: Abdomen, Normal: Skin and Normal: Neurological Plan Diagnosis/Plan: Unchanged I have reviewed the history and physical and performed a pertinent physical examination on my patient. No changes have occurred unless specified. Time Spent With Patient Time: Total time managing care of this patient today ____ minutes.
[2024-03-28 07:55] VITALS: BP 111/65; PULSE 70; RESP 12; TEMP 36.1; O2SAT 97
[2024-03-28 08:10] VITALS: BP 121/80; PULSE 73; RESP 18; TEMP 36.3; O2SAT 100
--- NOTE | 2024-03-28 08:49 | OP_ITS ---
DATE OF SERVICE: 03/28/2024 SURGEON: Fernando Leo MD INDICATIONS: Colon cancer screening. PREOPERATIVE DIAGNOSIS: POSTOPERATIVE DIAGNOSIS: PROCEDURE PERFORMED: Colonoscopy to the terminal ileum with biopsy. ESTIMATED BLOOD LOSS: COMPLICATIONS: ANESTHESIA: Monitored anesthesia care. ASSISTANTS: SPECIMENS: DESCRIPTION OF PROCEDURE: A history and physical was performed. The risks and benefits of the procedure were explained to the patient and informed consent was obtained. The patient was placed in a left lateral decubitus position. A digital rectal exam was performed and was found to be normal. The Olympus pediatric video colonoscope was introduced in the rectum and advanced to the cecum. The cecum was identified by transillumination, palpation, and identification of ileocecal valve. Examination was performed and the scope was removed. He tolerated the procedure well and was returned to recovery area in stable condition. FINDINGS: The terminal ileum was normal. The visualized colonic mucosa was within normal limits without evidence of masses or ulcers. No polyps were identified. The quality of the prep was good. There was mild sigmoid diverticulosis. Random biopsies were obtained from the sigmoid because of the patient's history of irritable bowel syndrome. Retroflexed examination showed small internal hemorrhoids. IMPRESSION: Normal colonoscopy. RECOMMENDATION: Consider repeat colonoscopy in 10 years for average-risk individuals. MD JOSE Tinsley/KARIN / [phone] MTDD
== END 2024-03-28 08:37 | disposition home or self-care (01) ==
PROVIDERS: PCP Internal Medicine; Visit Provider Internal Medicine Gastroenterology
PROC: 0DJD8ZZ Inspection of Lower Intestinal Tract, Via Natural or Artificial Opening Endoscopic (ICD-10-PCS; CPT 45378; principal; 2024-03-28 07:30)
DX: Z12.11 Encounter for screening for malignant neoplasm of colon (principal); Z86.010 Personal history of colon polyps; K57.30 Diverticulosis of large intestine without perforation or abscess without bleeding; K64.8 Other hemorrhoids; K58.9 Irritable bowel syndrome, unspecified; K21.9 Gastro-esophageal reflux disease without esophagitis; I25.10 Atherosclerotic heart disease of native coronary artery without angina pectoris; Z95.1 Presence of aortocoronary bypass graft; Z95.5 Presence of coronary angioplasty implant and graft; I10 Essential (primary) hypertension; E78.5 Hyperlipidemia, unspecified; Z85.118 Personal history of other malignant neoplasm of bronchus and lung; Z92.3 Personal history of irradiation; Z92.21 Personal history of antineoplastic chemotherapy; Z87.891 Personal history of nicotine dependence
CPT/HCPCS: 45380; 88305; J2704

== ENCOUNTER 2024-04-30 09:44 | Outpatient (AMB) | payer BC, SELFPAY ==
--- NOTE | 2024-04-30 09:46 | HO.NEPHOV_ITS ---
Vital Signs 04/30/24 09:48 Height 5 ft 7 in Weight 199 lb 4 oz BMI 31.2 BP 134/82 Blood Pressure Location Lt brachial Position Sitting Pulse 93 Pulse Source Pulse Oximeter Pulse Oximetry (%) 98 Oxygen Delivery Method Room Air Intake Visit Reasons: CKD/ 6 MO FU- Conf Business Analysis Consultant Required: No Accompanied by: Self / Same As Patient Allergies meperidine [From Demerol] Allergy (Severe, Verified 04/30/24 09:50) UNKNOWN woke up in ICU omeprazole [From Prilosec] Allergy (Intermediate, Verified 04/30/24 09:50) TACHYCARDIA HPI Comments Details: I had the privilege of seeing Edwin in follow-up of his chronic kidney disease and hypomagnesemia. He has coronary artery disease and had undergone CABG. As a part of workup for CABG he had a chest x-ray which showed an abnormal lesion which on further workup showed it as lung cancer for which he received chemotherapy(cisplatin as well as etoposide) and radiation. He continues to have hypomagnesemia and receives intravenous repletion. He denies chest pain, shortness of breath, paroxysmal nocturnal dyspnea, orthopnea, pedal edema, urinary or orthostatic symptoms. [facility] Medical History (Updated 03/26/24 @ 14:39 by Court Jacobo RN) AAA (abdominal aortic aneurysm) Coronary artery disease Small cell lung cancer Spasmodic colon Tremor Hypercholesterolemia Essential (primary) hypertension Surgical History History of esophagogastroduodenoscopy (EGD) H/O colonoscopy (~03/28/24) Hx of heart artery stent S/P quadruple vessel bypass History of hernia surgery History of cholecystectomy History of back surgery Family History Mother No problems noted. Father No problems noted. Social History Housing: House Are you a primary child daycare worker to a significant other at home: No Do you presently have visiting nurse or other home services: No Alcohol intake: current Alcohol intake frequency: holidays/special occasions only Patient Tobacco Use Status: Former Tobacco user Tobacco use type: Cigarette Cigarettes Per Day: 10 Years Smoked: 30 e-Cigarette/Vaping Use: Never Used Second Hand Smoke Exposure: Yes service: No Current occupational status: employed Cognitive needs: No Hearing needs: No Vision needs: Yes (reading glasses) Review of Systems Const All systems reviewed & are unremarkable except as noted in HPI and below Physical Exam Vital Signs: Last Vital Signs Pulse 93 04/30/24 09:48 BP 134/82 04/30/24 09:48 Pulse Ox 98 04/30/24 09:48 Oxygen Delivery Method Room Air 04/30/24 09:48 BMI result Body Mass Index 31.2 Const General: comfortable and no acute distress Orientation/consciousness: patient oriented x3 HEENT Head: Yes normocephalic Mouth: Normal oral and palatal mucosa present Eyes EOM: EOMs intact bilaterally Neck Neck: Yes supple Resp Auscultation: clear to auscultation bilaterally Cardio Jugular venous distension: no JVD Rate: regular rate GI Palpation (GI): Soft to palpation Auscultation: normal bowel sounds General: Yes no CVA tenderness Back/Spine/Pelvis Back: no CVA tenderness Skin General skin exam: no rashes or lesions noted Neuro General: patient oriented x3 and moves all extremities Extrem General: Yes no pedal edema Assessment & Plan Assessment & Plan (1) CKD (chronic kidney disease) stage 3, GFR 30-59 ml/min: Code(s): N18.30 - Chronic kidney disease, stage 3 unspecified Category: Medical Qualifiers: Chronic kidney disease stage 3 subtype: stage 3a (GFR 45-59) Qualified Code(s): N18.31 - Chronic kidney disease, stage 3a (2) Hypomagnesemia: Code(s): E83.42 - Hypomagnesemia Category: Medical Plan His renal functions are stable. His blood pressure is at goal. He continues to get intravenous magnesium replacement. I will consider initiating him on amiloride in the future. He maintains good hydration. He does not have any orthostatic symptoms. He should avoid nonsteroidal anti-inflammatories. I did not make any other medication changes today. Follow-up blood work ordered and follow-up appointment given. Answered all questions. Orders: Orders Creatinine 6 Months E83.42 - Hypomagnesemia, N18.31 - Chronic kidney disease, stage 3a Calcium 6 Months E83.42 - Hypomagnesemia, N18.31 - Chronic kidney disease, stage 3a Magnesium 6 Months E83.42 - Hypomagnesemia, N18.31 - Chronic kidney disease, stage 3a Blood Urea Nitrogen 6 Months E83.42 - Hypomagnesemia, N18.31 - Chronic kidney disease, stage 3a Electrolytes 6 Months E83.42 - Hypomagnesemia, N18.31 - Chronic kidney disease, stage 3a Coding Level of Care Code Est Pt Level 4 (37259) Diagnoses Stage 3a chronic kidney disease N18.31 Chronic kidney disease stage 3 subtype: stage 3a (GFR 45-59) Hypomagnesemia E83.42
[2024-04-30 09:48] VITALS: BP 134/82; PULSE 93; O2SAT 98; BMI 31.2
== END 2024-04-30 10:08 | disposition home or self-care (01) ==
PROVIDERS: PCP Internal Medicine; Visit Provider Internal Medicine Nephrology
DX: N18.31 Chronic kidney disease, stage 3a (principal); E83.42 Hypomagnesemia
CPT/HCPCS: 99213

== ENCOUNTER → 2024-04-30 09:44 | Outpatient (BNVA) | payer BC, SELFPAY | PROVIDERS: PCP Internal Medicine; Visit Provider Internal Medicine Nephrology ==

== ENCOUNTER 2025-01-08 08:18 | Outpatient (REF) | payer BC, SELFPAY ==
--- NOTE | ~2025-01-08 | US_ITS ---
CLINICAL HISTORY: I71.43 - Infrarenal abdominal aortic aneurysm, without rupture US abdominal aorta with color Doppler Comparison: None Findings: Aorta diameter proximal: 3.0 x 2.4 cm. Aorta diameter mid: 2.5 x 2.3 cm. Aorta diameter distal: 3.6 x 3.2 cm.This demonstrates fusiform dilatation. Right common iliac artery maximum diameter: 1.9 x 1.4 cm. Left common iliac artery maximum diameter: 2.1 x 1.8 cm. Normal color Doppler. Impression: 1. Fusiform infrarenal abdominal aortic aneurysm with probable involvement of the common iliac arteries This document has been electronically signed by: Vipul Lang MD on 01/08/2025 10:31:54
== END 2025-01-08 08:19 | disposition home or self-care (01) ==
LOC: HO.US 08:18
PROVIDERS: PCP Internal Medicine; Visit Provider Surgery Vascular Surgery
DX: I71.43 Infrarenal abdominal aortic aneurysm, without rupture (principal)
CPT/HCPCS: 76706

== ENCOUNTER → 2025-01-08 08:20 | Outpatient (BNV) | payer BC, SELFPAY | PROVIDERS: PCP Internal Medicine; Visit Provider Radiology Diagnostic Radiology | DX: I71.43 Infrarenal abdominal aortic aneurysm, without rupture (principal) | CPT/HCPCS: 76706 ==